=== PATIENT | female | born 1980 | race Hispanic/Latino ===

== ENCOUNTER 2016-08-30 13:44 | Emergency (ER) | payer OTHER ==
[2016-08-30] MEDS ORDERED: TDAP Vaccine 0.5 mL Syr IM ONE (14:04)
[2016-08-30 14:12] VITALS: TEMP 99.5; O2SAT 100; BMI 30.2
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
[2016-08-30 15:01] VITALS: BP 128/74; PULSE 94; RESP 16
== END 2016-08-30 15:02 | disposition home or self-care (01) ==
LOC: ED 13:44
DX: S20.319A Abrasion of unspecified front wall of thorax, initial encounter (principal); S40.812A Abrasion of left upper arm, initial encounter; S40.811A Abrasion of right upper arm, initial encounter; Y04.8XXA Assault by other bodily force, initial encounter; Z23 Encounter for immunization